=== PATIENT | female | born 1950 | race Caucasian/White ===

== ENCOUNTER 2019-03-03 15:56 | Inpatient (IN) | payer MEDICARE, OTHER ==
[~2019-03-03] VITALS: Ht 167.6 cm; Wt 58.1 kg
[2019-03-03] MEDS ORDERED: THIA100T13 PO (16:09)
[2019-03-03] MEDS ORDERED: ONDA4TAB10 PO (16:09)
[2019-03-03] MEDS ORDERED: NITR100C6 PO ×2 (16:09→16:58)
[2019-03-03] MEDS ORDERED: LORA1TAB PO (16:09)
[2019-03-03] MEDS ORDERED: MULT1TAB73 PO (16:09)
[2019-03-03] MEDS ORDERED: ALBU18HF2 IH (16:09)
[2019-03-03] MEDS ORDERED: FOLI1TAB16 PO (16:09)
--- NOTE | 2019-03-03 16:19 | NUR ---
Medically cleared by Dr Reyna, patient is now ready for admission to [facility] , pending admitting papers@this time
--- NOTE | 2019-03-03 16:20 | NUR ---
PER PT IS MEDICALLY CLEAR AND MAY BE TRANS TO [facility]. SBAR REPORT GIVEN TO WOO RAMIREZ VIA TELEPHONE.
--- NOTE | 2019-03-03 16:27 | NUR ---
PT TRANS TO [facility], NAD NOTED.
[2019-03-03] MEDS ORDERED: MAG HYDROX/AL HYDROX/SIMETH 30 ML LIQUID UDC PO PRN (17:00)
[2019-03-03] MEDS ORDERED: LORAZEPAM 1 MG TABLET PO PRN (17:00)
[2019-03-03 17:05] VITALS: BP 111/75
[2019-03-03] MEDS ORDERED: ALBUTEROL SULFATE 2.5 MG/3 ML NEBU NEB PRN (18:00)
[2019-03-03] MEDS ORDERED: ALBUTEROL SULFATE 8 GM HFA.AER.AD IH PRN (18:00)
[2019-03-03] MEDS ORDERED: ONDANSETRON HCL 4 MG TABLET PO PRN (18:00)
--- NOTE | 2019-03-03 18:00 | NUR ---
Admitted a patient from ER was place on 5149 for DTS due to suicidal ideation,per 5149 patient's friend call 911 to say goodbye and she love them.during face to face interview , pt denies any SI. pt state that i just joking ,I don't feels hopeless or helpless. pt is very hyperverbal self care ambulating .
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
[2019-03-03] MEDS: NITROFURANTOIN/NITROFURAN MAC 100 MG CAPSULE PO SCH (20:05)
[2019-03-03 21:02] VITALS: BP 123/68
[2019-03-04] MEDS: TEMAZEPAM 7.5 MG CAPSULE PO PRN (00:09)
[2019-03-04 07:30] VITALS: BP 112/69
[2019-03-04] MEDS: NITROFURANTOIN/NITROFURAN MAC 100 MG CAPSULE PO SCH ×2 (08:39→20:55)
[2019-03-04] MEDS: THIAMINE HCL 100 MG TABLET PO SCH (08:39)
[2019-03-04] MEDS: FOLIC ACID 1 MG TABLET PO SCH (08:40)
[2019-03-04] MEDS: MULTIVITAMINS,THERAPEUTIC TABLET PO SCH (08:40)
[2019-03-04] MEDS ORDERED: Medication Not On Formulary EA (Multivitamins (Multivitamin) 1 EACH) PO SCH (09:00)
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
[2019-03-04] MEDS: ACETAMINOPHEN 325 MG TABLET PO PRN (15:13)
[2019-03-04 16:00] VITALS: BP 92/60
[2019-03-04 20:13] VITALS: BP 106/69
[2019-03-04] MEDS: MIRTAZAPINE 15 MG TABLET PO SCH (20:55)
[2019-03-05 07:30] VITALS: BP 115/72
[2019-03-05] MEDS: FOLIC ACID 1 MG TABLET PO SCH (08:40)
[2019-03-05] MEDS: MULTIVITAMINS,THERAPEUTIC TABLET PO SCH (08:40)
[2019-03-05] MEDS: NITROFURANTOIN/NITROFURAN MAC 100 MG CAPSULE PO SCH ×2 (08:40→20:17)
[2019-03-05] MEDS: THIAMINE HCL 100 MG TABLET PO SCH (08:47)
--- NOTE | 2019-03-05 15:41 | NUR ---
Initial Discharge Planning: Patient is a 68 year old female who currently lives on her own at home [[address] [facility] [address]; . Patient makes decisions for herself. Patient currently denying suicidal ideation and expressing interest in allowing others to help her. However, patient does admit to alcohol abuse and interst in quitting. Patient's friend Ivonne (Tamera) appears to be involved in patient's wellbeing. Water Quality Technician will continue to meet with patient and collaborate with patient and MD on a safe and proper discharge.
[2019-03-05 16:00] VITALS: BP 105/71
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
[2019-03-05 19:50] VITALS: BP 108/69
[2019-03-05] MEDS: MIRTAZAPINE 15 MG TABLET PO SCH (20:17)
[2019-03-05] MEDS: TEMAZEPAM 7.5 MG CAPSULE PO PRN (23:21)
[2019-03-06 07:30] VITALS: BP 107/67
[2019-03-06] MEDS: NITROFURANTOIN/NITROFURAN MAC 100 MG CAPSULE PO SCH ×2 (08:51→20:25)
[2019-03-06] MEDS: FOLIC ACID 1 MG TABLET PO SCH (08:51)
[2019-03-06] MEDS: THIAMINE HCL 100 MG TABLET PO SCH (08:52)
[2019-03-06] MEDS: MULTIVITAMINS,THERAPEUTIC TABLET PO SCH (08:52)
[2019-03-06 16:00] VITALS: BP 110/70
[2019-03-06] MEDS: ACETAMINOPHEN 325 MG TABLET PO PRN (19:21)
[2019-03-06 20:16] VITALS: BP 128/72
[2019-03-06] MEDS: MIRTAZAPINE 15 MG TABLET PO SCH (20:25)
[2019-03-06] MEDS: TEMAZEPAM 7.5 MG CAPSULE PO PRN (21:01)
[2019-03-07 07:30] VITALS: BP 101/76
[2019-03-07] MEDS: THIAMINE HCL 100 MG TABLET PO SCH (08:42)
[2019-03-07] MEDS: NITROFURANTOIN/NITROFURAN MAC 100 MG CAPSULE PO SCH ×2 (08:42→20:09)
[2019-03-07] MEDS: FOLIC ACID 1 MG TABLET PO SCH (08:42)
[2019-03-07] MEDS: MULTIVITAMINS,THERAPEUTIC TABLET PO SCH (08:42)
[2019-03-07 16:00] VITALS: BP 113/69
[2019-03-07] MEDS: MAGNESIUM HYDROXIDE 30 ML LIQUID UDC PO PRN (16:56)
[2019-03-07 20:00] VITALS: BP 124/64
[2019-03-07] MEDS: MIRTAZAPINE 15 MG TABLET PO SCH (20:09)
[2019-03-07] MEDS: TEMAZEPAM 7.5 MG CAPSULE PO PRN (20:55)
[2019-03-08 07:30] VITALS: BP 118/72
[2019-03-08] MEDS: NITROFURANTOIN/NITROFURAN MAC 100 MG CAPSULE PO SCH ×2 (08:22→21:05)
[2019-03-08] MEDS: THIAMINE HCL 100 MG TABLET PO SCH (08:22)
[2019-03-08] MEDS: MULTIVITAMINS,THERAPEUTIC TABLET PO SCH (08:22)
[2019-03-08] MEDS: FOLIC ACID 1 MG TABLET PO SCH (08:22)
--- NOTE | 2019-03-08 10:45 | NUR ---
FIREARMS REPORT: [employer] has completed and submitted a [employer] report for a 5150 DTS certification.
[2019-03-08 16:10] VITALS: BP 101/58
[2019-03-08 20:07] VITALS: BP 114/73
[2019-03-08] MEDS: MIRTAZAPINE 15 MG TABLET PO SCH (21:05)
[2019-03-08] MEDS: ACETAMINOPHEN 325 MG TABLET PO PRN (21:06)
--- NOTE | 2019-03-09 05:23 | NUR ---
PATIENT ALERT, SLEPT MOST OF THE NIGHT. PATIENT COOPERATIVE WITH CARE AND MEDICATION. PATIENT TOOK SHOWER TODAY.
[2019-03-09 07:30] VITALS: BP 108/69
[2019-03-09] MEDS: FOLIC ACID 1 MG TABLET PO SCH (08:22)
[2019-03-09] MEDS: MULTIVITAMINS,THERAPEUTIC TABLET PO SCH (08:22)
[2019-03-09] MEDS: NITROFURANTOIN/NITROFURAN MAC 100 MG CAPSULE PO SCH ×2 (08:22→21:07)
[2019-03-09] MEDS: THIAMINE HCL 100 MG TABLET PO SCH (08:22)
[2019-03-09 15:34] VITALS: BP 100/60
[2019-03-09 20:07] VITALS: BP 110/68
[2019-03-09] MEDS: MIRTAZAPINE 15 MG TABLET PO SCH (21:07)
[2019-03-10 07:30] VITALS: BP 106/70
[2019-03-10] MEDS: MULTIVITAMINS,THERAPEUTIC TABLET PO SCH (09:05)
[2019-03-10] MEDS: FOLIC ACID 1 MG TABLET PO SCH (09:06)
[2019-03-10] MEDS: THIAMINE HCL 100 MG TABLET PO SCH (09:06)
[2019-03-10 16:00] VITALS: BP 106/67
[2019-03-10] MEDS: MAGNESIUM HYDROXIDE 30 ML LIQUID UDC PO PRN (17:05)
[2019-03-10] MEDS: MIRTAZAPINE 15 MG TABLET PO SCH (20:11)
[2019-03-10] MEDS: TEMAZEPAM 7.5 MG CAPSULE PO PRN (22:01)
[2019-03-10 22:51] VITALS: BP 102/70
[2019-03-11 07:30] VITALS: BP 104/66
[2019-03-11] MEDS: MULTIVITAMINS,THERAPEUTIC TABLET PO SCH (08:15)
[2019-03-11] MEDS: FOLIC ACID 1 MG TABLET PO SCH (08:15)
[2019-03-11] MEDS: THIAMINE HCL 100 MG TABLET PO SCH (08:15)
[2019-03-11] MEDS: MIRALAX 17 GM POWD.PACK PO SCH (15:43)
[2019-03-11 16:00] VITALS: BP 90/55
[2019-03-11] MEDS: MIRTAZAPINE 15 MG TABLET PO SCH (20:10)
[2019-03-11] MEDS: DOCUSATE SODIUM 100 MG CAPSULE PO SCH (20:12)
[2019-03-11 20:54] VITALS: BP 107/60
[2019-03-11] MEDS: TEMAZEPAM 7.5 MG CAPSULE PO PRN (21:09)
--- NOTE | 2019-03-12 06:52 | NUR ---
GPS: Remain calm and cooperative with meds and care. took showered this morning. slept 9 hrs through the night. continue plan of care.
[2019-03-12 07:30] VITALS: BP 97/67
[2019-03-12] MEDS: DOCUSATE SODIUM 100 MG CAPSULE PO SCH (08:24)
[2019-03-12] MEDS: THIAMINE HCL 100 MG TABLET PO SCH (08:25)
[2019-03-12] MEDS: MULTIVITAMINS,THERAPEUTIC TABLET PO SCH (08:25)
[2019-03-12] MEDS: MIRALAX 17 GM POWD.PACK PO SCH (08:25)
[2019-03-12] MEDS: FOLIC ACID 1 MG TABLET PO SCH (08:25)
--- NOTE | 2019-03-12 08:54 | NUR ---
Patient will be discharged home [[address] [facility] [address]; [phone]]. Patient's friend Ivonne JacquelynDipak Chow [facility]. Patient is A&Ox4, denies suicidal ideation, is able to plan for self care and agreeable with discharge plan. Patient will follow up with PCP Dr. Roe Coleman at [facility] [[address], [place] [address]; [phone]]. Patient will also be following up with [facility] IOP "[facility]" on Friday03/17/19 for an initial appointment. SW arranging IOP appointment time, will provide update once appointment is received. Claim Processing Specialist provided patient with a brief substance abuse intervention addressing ETOH abuse. Claim Processing Specialist provided patient with substance abuse resources including [facility] [[address] [place] [address]; [phone]]; [facility] [[address] [place] [address]; [phone]]; [facility] [[address] [facility] [address]; [phone]]; and Substance Abuse and Mental Health Services Administration (SAMHSA) National Helpline 0-010-296-HELP (2500). Patient was also provided with referrals for [facility] Crisis Line ; [facility] , and the National Suicide Prevention Lifeline .
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
== END 2019-03-12 12:00 | disposition home or self-care (01) | DRG 881 ==
LOC: ER 16:00 → GPS 16:22
PROVIDERS: ADMIT Psychiatry & Neurology Psychiatry; ATTEND Registered Nurse
DX: F32.9 Major depressive disorder, single episode, unspecified (principal); N39.0 Urinary tract infection, site not specified; Z87.440 Personal history of urinary (tract) infections; K59.00 Constipation, unspecified; J44.9 Chronic obstructive pulmonary disease, unspecified; E78.5 Hyperlipidemia, unspecified; F10.10 Alcohol abuse, uncomplicated; Y90.9 Presence of alcohol in blood, level not specified; Z88.0 Allergy status to penicillin; Z91.018 Allergy to other foods
CPT/HCPCS: 36415; 94640; 97110; 97116; A4663